=== PATIENT | male | born 1965 | race Asian ===

== ENCOUNTER 2020-11-13 12:06 | Emergency (ER) | payer OTHER ==
[~2020-11-13] VITALS: Ht 180.3 cm; Wt 56.2 kg
[2020-11-13 12:40] LABS: PLATELET COUNT 467 K/uL (142-355)
[2020-11-13 14:20] VITALS: BP 131/85; TEMP 98.7
[2020-11-13] MEDS ORDERED: ASCORBIC ACD500 MG PO (15:23)
[2020-11-13] MEDS ORDERED: BACLOFEN20 MG PO (15:24)
[2020-11-13] MEDS ORDERED: CARV6.25 PO (15:24)
[2020-11-13] MEDS ORDERED: DOCU100C10 PO (15:25)
[2020-11-13] MEDS ORDERED: DIAZEPAM10 M2 PO (15:26)
[2020-11-13] MEDS ORDERED: GRALISE600 MG PO (15:26)
[2020-11-13] MEDS ORDERED: METHIMAZOLE10 MG PO (15:27)
[2020-11-13] MEDS ORDERED: MIRAPEX1 MG PO (15:28)
[2020-11-13] MEDS ORDERED: MULTIVITAMIN1 TA1 PO (15:29)
[2020-11-13] MEDS ORDERED: PERCOCET1 TA3 PO (15:29)
== END 2020-11-13 14:20 | disposition other institution (70) ==
LOC: ED 12:06
PROVIDERS: Family Medicine
DX: R46.89 Other symptoms and signs involving appearance and behavior (principal); F20.89 Other schizophrenia; N39.0 Urinary tract infection, site not specified; Z11.52 Encounter for screening for COVID-19; Z04.6 Encounter for general psychiatric examination, requested by authority
CPT/HCPCS: 80053; 81000; 85027; 87077; 87086; 87088; 87186; 87635; 93005; 96372; 99283; J0696; U0003